=== PATIENT | male | born 1935 | race Caucasian/White ===

== ENCOUNTER 2016-10-22 11:04 | Emergency (ER) | payer OTHER, BC ==
[~2016-10-22] VITALS: Ht 175.3 cm; Wt 133.0 kg
[~2016-10-22 11:04] MED LIST: ANDROGEL5 GM TP; FLEXERIL10 MG PO; NORVASC5 MG PO; OMEPRAZOLE20 MG PO; TAMSULOSIN HCL0.4 MG PO; TYLENOL EXTRA500 MG PO
[2016-10-22 11:48] LABS: HEMATOCRIT 41.6 % (38.0-50.0); MCH 30.1 PG (29.0-34.0); MCHC 32.9 G/DL (30.0-36.0); MCV 91.4 FL (86-99); MEAN PLAT.VOLUME 8.3 uM^3 (9.0-12.4); PLATELET COUNT 166 K/uL (156-360); RBC DIS.WIDTH-CV 13.2 % (11.8-14.6); RBC DIS.WIDTH-SD 44.9 % (39-53); RED BLOOD COUNT 4.55 M/uL (4.00-5.50); WHITE BLOOD COUNT 4.8 K/uL (4.1-10.2)
[2016-10-22 11:56] LABS: CHLORIDE 106 mEq/L (99-109); POTASSIUM 3.8 mEq/L (3.7-5.4); SODIUM 141 mEq/L (136-147)
[2016-10-22 11:57] LABS: INTER. NORMALIZED RATIO 1.1; PROTHROMBIN TIME 10.7 (9.2-11.2)
[2016-10-22 11:59] LABS: GLUCOSE 101 mg/dL (70-99)
[2016-10-22 12:00] LABS: ANION GAP 10 MEQ/L (2-14)
[2016-10-22 12:01] LABS: TOTAL BILIRUBIN 0.6 mg/dL (0.0-1.0)
[2016-10-22 12:02] LABS: ALKALINE PHOSPHATASE 68 IU/L (3-129); GFR ESTIMATE (CALCULATED) > 59 mL/min/
[2016-10-22 12:03] LABS: UREA NITROGEN (BUN) 14 mg/dL (9-23)
[2016-10-22 13:38] LABS: EOSINOPHIL (%) 5.4 % (0-5); EOSINOPHIL COUNT 0.3 K/uL (0-0.3); IMMATURE GRANULOCYTE (%) 0.4 % (0.0-0.7); INSTRUMENT ABS NEUTROPHIL CT 2.4 K/uL; LYMPHOCYTE COUNT 1.6 K/uL (1.0-2.8); MONOCYTE COUNT 0.5 K/uL (0-0.8); NEUTROPHIL (%) 50.4 % (45-76); NEUTROPHIL COUNT 2.4 K/uL (1.8-6.4)
[2016-10-22 16:20] VITALS: BP 120/68
== END 2016-10-22 16:22 | disposition home or self-care (01) ==
LOC: EME 11:04
PROVIDERS: Emergency Medicine
DX: R10.9 Unspecified abdominal pain (principal); I10 Essential (primary) hypertension; Z87.442 Personal history of urinary calculi; K21.9 Gastro-esophageal reflux disease without esophagitis; Z87.891 Personal history of nicotine dependence
CPT/HCPCS: 74177; 80053; 85025; 85610; 99281; 99285; J7030